=== PATIENT | female | born 1980 | race Caucasian/White ===

== ENCOUNTER 2021-07-01 05:42 | Day surgery (SDC) | payer OTHER ==
[2021-06-28 15:31] LABS: BASOPHILS # (AUTO) 0.1 X10'3 (0-0.2); BASOPHILS % (AUTO) 0.7 % (0-1); EOSINOPHILS # (AUTO) 0.3 X10'3 (0-0.9); EOSINOPHILS % (AUTO) 2.1 % (0-6); LYMPHOCYTES % (AUTO) 24.6 % (21-51); MEAN CORPUSCULAR HEMOGLOBIN 27.9 PG (27.0-31.0); MEAN CORPUSCULAR VOLUME 84.4 FL (78-98); MEAN PLATELET VOLUME 8.1 FL (7.4-10.4); MONOCYTES # (AUTO) 0.8 X10'3 (0-0.9); MONOCYTES % (AUTO) 6.9 % (2-12); NEUTROPHILS % (AUTO) 65.7 % (42-75); PRE OP HEMATOCRIT 37.4 % (35.0-45.0); PRE OP HEMOGLOBIN 12.4 g/dL (12.0-16.0); PRE OP PLATELET COUNT 391 X10'3 (140-440); RED BLOOD COUNT 4.43 X10'6 (4.20-5.60); RED CELL DISTRIBUTION WIDTH 13.4 % (11.5-14.5)
[2021-06-28 15:51] LABS: ALBUMIN 3.9 G/DL (3.4-5.0); ALKALINE PHOSPHATASE 101 IU/L (46-116); BLOOD UREA NITROGEN 15 MG/DL (7-18); BUN/CREATININE RATIO 21.4 (6.6-38.0); CALCIUM 9.5 MG/DL (8.5-10.1); CHLORIDE 102 MMOL/L (99-107); PRE OP ALT 28 U/L (30-65); PRE OP ANION GAP 12 (8-16); PRE OP AST 21 U/L (10-37); PRE OP BILIRUB, TOTAL 0.3 MG/DL (0.0-1.0); PRE OP GLUCOSE 103 MG/DL (70-104); PRE OP POTASSIUM 4.1 MMOL/L (3.4-5.1); PRE OP SODIUM 140 MMOL/L (135-145); TOTAL CARBON DIOXIDE 26.5 MMOL/L (24-32); eGFR > 90 ML/MIN
[2021-07-01] VITALS (10 sets, daily range): BP systolic 98–121; BP diastolic 65–90
[~2021-07-01] VITALS: Ht 157.5 cm; Wt 88.5 kg
[~2021-07-01 05:42] MED LIST: GARLIC; VITAMINS; famotidine 20mg tablet PO ONE; ringers solution, lacted 1,000 ML IV SCH
[2021-07-01] MEDS ORDERED: cefazolin/dext.iso 2gm/50ml IV ONE (06:13)
[2021-07-01] MEDS ORDERED: BUPIVAcaine/PF 2.5mg/ml (0.25%) 10ml vial ONE (06:39)
[2021-07-01] MEDS ORDERED: LIDOcaine 1% 30ml preserv. free vial ONE (07:16)
[2021-07-01] MEDS ORDERED: ringers solution, lacted 1,000 ML IV SCH (07:35)
[2021-07-01] MEDS ORDERED: morphine 4 MG/ML inj SYRINge IV PRN (07:35)
[2021-07-01] MEDS ORDERED: proCHLORperazine 10 MG/2 ml inj IV PRN (07:35)
[2021-07-01] MEDS ORDERED: meperidine/PF 25mg/ml syringe IV PRN ×3 (07:35)
[2021-07-01] MEDS ORDERED: ondansetron/PF 4mg/2ml inj IV PRN (07:35)
[2021-07-01] MEDS ORDERED: morphine 2 MG/ML inj. syringe IV PRN (07:35)
[2021-07-01] MEDS ORDERED: fentaNYL/PF 50MCG/1 ML 2ML syringe ONE (07:38)
[2021-07-01] MEDS ORDERED: MIDAZolam 1 MG/ML 5ML VIAL ONE (07:38)
[2021-07-01] MEDS ORDERED: ketorolac trometh. 30mg/ml inj. ONE (07:41)
[2021-07-01] MEDS ORDERED: propofol inj 20 ML IV ONE (08:49)
--- NOTE | 2021-07-01 08:52 | NUR ---
Received from OR via , accompanied by Anesthesiologist DR WOODS and report given by Anesthesiolgist. PT PRESENTS WITH 20G LEFT HAND, LEFT HAND DRESSING CLEAN DRY AND INTACT. VSS Addendum: 07/01/21 at 1026 by Courtney Angeles RN, RN Amended: Links added.
--- NOTE | 2021-07-01 10:12 | NUR ---
ALL DC CRITERIA MET, VSS. PAIN AT TOLERABLE LEVEL, PT ABLE TO AMBULATE AND TRANSFER BY HERSELF. IV DC'D, DC INSTRUCTIONS REVIEWED WITH PT, PT VERBALIZED UNDERSTANDING WITH NO FURTHER QUESTIONS AT THIS TIME. PT TAKEN OUT IN WHEELCHAIR TO WHO DROVE PT HOME. Addendum: 07/01/21 at 1022 by Courtney Angeles RN, RN Amended: Links added.
== END 2021-07-01 10:12 | disposition home or self-care (01) ==
LOC: PAS 05:42
PROVIDERS: ATTEND Orthopaedic Surgery Hand Surgery
DX: S62.625A Displaced fracture of middle phalanx of left ring finger, initial encounter for closed fracture (principal); F17.210 Nicotine dependence, cigarettes, uncomplicated; Z79.899 Other long term (current) drug therapy; Z20.822 Contact with and (suspected) exposure to COVID-19; X58.XXXA Exposure to other specified factors, initial encounter; Y92.89 Other specified places as the place of occurrence of the external cause; Y93.89 Activity, other specified; Y99.8 Other external cause status
CPT/HCPCS: 26746; 36415; 80053; 82948; 85025; 87635; A6222; C1713; C9803; J0690; J1885; J2250; J2704; J3010; J3490; J7030; J7120; Z7506; Z7508; Z7512; A4215; A4618; A6449; A7000